=== PATIENT | female | born 1985 | race Caucasian/White ===

== ENCOUNTER 2016-12-22 12:40 | Emergency (ER) | payer BC ==
[~2016-12-22] VITALS: Ht 157.5 cm; Wt 74.4 kg
[~2016-12-22 12:40] MED LIST: PANT40EC PO
[2016-12-22 12:44] VITALS: BP 119/82
--- NOTE | 2016-12-22 14:20 | NUR ---
PATIENT AMBULATED TO ER BED 7.
--- NOTE | 2016-12-22 14:26 | NUR ---
31F BIB FAMILY C/O ABDOMINAL PAIN X 4 QUADRANTS, PRESSURE, NON-RADIATING, 8/10 X LAST NIGHT; PT C/O 2 EPISODES OF VOMITING TODAY, WITH 9 EPISODES OF DIARRHEA & BLOOD IN THE STOOL; ABDOMEN SOFT, NON-TENDER, ACTIVE BOWEL SOUNDS X 4 QUADRANTS; PT STATES MAY HAVE BEEN FROM [place] DENT PT ATE LAST NIGHT; PT AA&OX4, PERRLA, BL LUNG SOUNDS CLEAR, RR EVEN/UNLABORED, SKIN IS WARM/DRY/INTACT; PT RESTING IN BED W/ HOB ELEVATED AND IN LOWEST POSITION; POSITIONED FOR COMFORT; ER MD MADE AWARE OF STATUS. WILL CONTINUE TO MONITOR.
--- NOTE | 2016-12-22 14:29 | NUR ---
ER MD DR. RUFFIN EVALUATING PT AT BEDSIDE.
[2016-12-22] MEDS ORDERED: NACL 0.9% 1,000 ML IV ONE ×2 (14:30→15:25)
--- NOTE | 2016-12-22 14:30 | NUR ---
PATIENT BEING EVALUATED BY DR. RUFFIN.
[2016-12-22] MEDS ORDERED: HYDROmorphone 1 MG/ML AMP IVP ONE (14:40)
[2016-12-22 14:46] LABS: HEMOGLOBIN 14.6 g/dL (12.0-16.0); MEAN CORPUSCULAR HEMOGLOBIN 28 pg (27-31); PLATELET COUNT (AUTO) 244 K/uL (140-450)
[2016-12-22 14:50] LABS: BASOPHILS # (AUTO) 0.1 K/uL (0.00-0.22); BASOPHILS % (AUTO) 1.4 % (0.0-2.0); EOSINOPHILS # (AUTO) 0.1 K/uL (0-0.4); EOSINOPHILS % (AUTO) 1.7 % (0.0-4.0); HEMATOCRIT 44.3 % (36-48); LYMPHOCYTES # (AUTO) 1.7 K/uL (2.5-16.5); LYMPHOCYTES % (AUTO) 19.6 % (20.5-51.1); MEAN CORPUSCULAR HGB CONC 33 g/dL (33-37); MEAN CORPUSCULAR VOLUME 85 fL (80-94); MONOCYTES # (AUTO) 0.6 K/uL (0.8-1.0); MONOCYTES % (AUTO) 7.1 % (1.7-9.3); NEUTROPHILS # (AUTO) 6.1 K/uL (1.8-7.7); NEUTROPHILS % (AUTO) 70.2 % (42.2-75.2); RED BLOOD CELL COUNT(AUTO) 5.23 MIL/uL (4.20-5.40); WHITE BLOOD COUNT (AUTO) 8.6 K/uL (4.8-10.8)
[2016-12-22 14:56] LABS: ANION GAP 12.8 (8-16); CALCIUM 9.1 mg/dL (8.5-10.1); CARBON DIOXIDE 28.2 mmol/L (21-32); CREATININE 0.9 mg/dL (0.6-1.3)
[2016-12-22 15:02] LABS: ALBUMIN 4.1 g/dL (3.4-5.0); TOTAL BILIRUBIN 1.2 mg/dL (0.0-1.0)
[2016-12-22 15:04] LABS: LACTIC ACID 0.8 mmol/L (0.4-2.0)
[2016-12-22 16:23] LABS: APPEARANCE,URINE CLEAR (CLEAR); BILIRUBIN,URINE NEGATIVE (NEGATIVE); BLOOD, URINE 1+ (NEGATIVE); COLOR,URINE YELLOW (YELLOW); LEUKOCYTE ESTERASE ,URINE NEGATIVE (NEGATIVE); NITRITE, URINE NEGATIVE (NEGATIVE); PH,URINE 5.5 (5.0-9.0); PROTEIN,URINE NEGATIVE (NEGATIVE); UGLUCOSE NEGATIVE (NEGATIVE); UROBILINOGEN,URINE 0.2 EU/dL (0.2 - 1)
[2016-12-22] MEDS ORDERED: ONDANSETRON 4 MG/2 ML VIAL IVP ONE (16:25)
[2016-12-22 16:37] LABS: BACTERIA,URINE 1+ /HPF (None Seen); RBC,URINE 0-3 /HPF (0-5); SQUAMOUS EPITHELIAL CELL,UR 0-5 /LPF (0-3 (FEW)); WBC,URINE 0-3 /HPF (0-5)
--- NOTE | 2016-12-22 16:39 | NUR ---
PT TAKEN TO CT VIA W/C ACCOMPANIED BY PRINCIPAL RESEARCH ECONOMIST.
--- NOTE | 2016-12-22 17:30 | NUR ---
PT APPEARS TO BE RESTING COMFORTABLY IN BED; VSS; RR EVEN/UNLABORED; WILL CONTINUE TO MONITOR.
[2016-12-22] MEDS ORDERED: oxyCODONE/APAP 5/325 MG 1 TAB TAB PO ONE (18:40)
--- NOTE | 2016-12-22 18:45 | NUR ---
IV removed, catheter intact and site benign. Applied folded 4x4 gauze and tape to stop bleeding. PT TOLERATED PROCEDURE WELL.
[2016-12-22 18:50] VITALS: BP 128/74
--- NOTE | 2016-12-22 18:50 | NUR ---
Patient discharged with v/s stable. Written and verbal after care instructions given and explained. Patient alert, oriented and verbalized understanding of instructions. Ambulatory with steady gait. All questions addressed prior to discharge. ID band removed. Patient advised to follow up with PMD. Rx of METRONIDAZOLE 500MG TAB, CIPROFLOXACIN HYDROCHLORIDE 500MG TAB, NORCO 5MG-325MG TAB & ZOFRAN ODT 4MG given. Patient educated on indication of medication including possible reaction and side effects. Opportunity to ask questions provided and answered.
== END 2016-12-22 18:50 | disposition home or self-care (01) ==
LOC: MED 12:40
DX: K52.9 Noninfective gastroenteritis and colitis, unspecified (principal); Z90.49 Acquired absence of other specified parts of digestive tract; F17.210 Nicotine dependence, cigarettes, uncomplicated
CPT/HCPCS: 36415; 74177; 80053; 81001; 81025; 82150; 83605; 83690; 84703; 85025; 87040; 96361; 96374; 96375; 99285; J1170; J2405; J7030; Q9967